=== PATIENT | female | born 1955 | race Hispanic/Latino ===

== ENCOUNTER → 2022-09-09 | Outpatient (CLI) | payer OTHER | END | disposition home or self-care (01) | LOC: RAH 14:07 | PROVIDERS: ATTEND Family Medicine | DX: R10.9 Unspecified abdominal pain (principal); R10.2 Pelvic and perineal pain; Z90.710 Acquired absence of both cervix and uterus | CPT/HCPCS: 76770; 76856 ==

== ENCOUNTER 2024-10-25 11:58 | Emergency (ER) | payer OTHER ==
[~2024-10-25] VITALS: Ht 144.8 cm; Wt 61.2 kg
[~2024-10-25 11:58] MED LIST: BENZ-39 PO; ELVI1TAB3 PO; ERGO500093 PO; FOLI1 PO; LIDO1ADH71 TP
--- NOTE | 2024-10-25 12:32 | ERN ---
ED Note History of Present Illness Stated Complaint: NAUSEA, DIZZY Chief Complaint: Lower Extremity Pain/Injury Time Seen by MD: 12:02 Dictation: PATIENT IS A 69-YEAR-OLD FEMALE HERE WITH MULTIPLE COMPLAINTS. FIRST COMPLAINT IS SHE HAS BILATERAL PAIN FROM HER BILATERAL LEGS DOWN TO HER FEET AND CRAMPING ONSET SHE HAS HAD FOR QUITE A WHILE. SHE ALSO STATES SHE HAS PAIN IN BILATERAL THIGHS OCCASIONALLY. SHE ALSO STATES FROM TIME TO TIME SHE IS DIZZY. DOES NOT HAVE ANY HEADACHE, NIH IS 0. SHE HAS TAKEN NOTHING PRIOR TO ARRIVAL FOR THE PAIN. SHE STATES SHE SAW HER DOCTOR TWO DAYS AGO HE GAVE HER A SHOT FOR THE PAIN IN THE LEGS AND IT GOT BETTER BRIEFLY AND THEN IT CAME BACK. NO FEVER NO CHILLS. Allergies: Coded Allergies: Iodinated Contrast Media (Unverified Allergy, Unknown, 10/25/24) Penicillins (Unverified Allergy, Unknown, 06/09/24) Uncoded Allergies: EGGS (Allergy, Mild, 06/10/24) Home Meds Active Scripts Lidocaine (Lidocaine Pain Relief) 4 % Adh..patch, 1 EACH TP DAILY, #30 ADH.PATCH Prov:ANNALISA LEAL [employer] ATTORNEY 06/15/24 Benzonatate (Tessalon Perles) 100 Mg Cap, 1 CAP PO TID PRN for q6h for 10 Days, #30 CAP 0 Refills Prov:ANNALISA LEAL [employer] ATTORNEY 06/15/24 Reported Medications Folic Acid (Folvite) 1 Mg Tab, 1 TAB PO BID 06/10/24 Ergocalciferol (Vitamin D2) (Vitamin D2) 1,250 Mcg (90574 Unit) Capsule, 1 CAP PO QWEEK 06/10/24 Elviteg/Seda/Emtric/Tenofo Ala (Genvoya Tablet) 150 Mg-150 Mg-200 Mg-10 Mg Tablet, 1 TAB PO DAILY 06/10/24 Past Medical History Past Medical History: HIV Surgical History: Other Surgical History Other: BRAIN TUMOR History: Not Applicable RN Note Reviewed/Agreed w/PFSH: Yes Review of System Dictation CONSTITUTIONAL: NEGATIVE EXCEPT FOR HPI HEAD/FACE: NEGATIVE EXCEPT FOR HPI EENT: NEGATIVE EXCEPT FOR HPI RESPIRATORY: NEGATIVE EXCEPT FOR HPI GASTROINTESTINAL/ABDOMINAL: NEGATIVE EXCEPT FOR HPI GENITOURINARY: NEGATIVE EXCEPT FOR HPI MUSCULOSKELETAL: NEGATIVE EXCEPT FOR HPI BILATERAL LOWER EXTREMITY AND LEFT THIGH TENDERNESS WITH INTEGUMENTARY: NEGATIVE EXCEPT FOR HPI NEUROLOGICAL/PSYCH: NEGATIVE EXCEPT FOR HPI PALPATION DIZZY HEMATOLOGIC/LYMPHATIC: NEGATIVE EXCEPT FOR HPI ALL SYSTEMS NEGATIVE, EXCEPT NOTED ABOVE. 13 POINT REVIEW OF SYSTEMS ASSESSED AND ALL NEGATIVE EXCEPT FOR ABOVE. Initial Vital Sign VS Vital Signs Date Time Temp Pulse Resp B/P (MAP) Pulse Ox O2 Delivery O2 Flow Rate FiO2 10/25/24 12:13 100.9 84 16 137/56 Room Air 0 Physical Exam Dictation VITAL SIGNS REVIEWED GENERAL APPEARANCE: ALERT, ORIENTED X 3, NO ACUTE DISTRESS, WELL DEVELOPED, NO URISHED. ANXIOUS HEAD AND FACE: NON-TRAUMATIC. EYES: PERRL, PINK CONJUNCTIVAS, EYELID NO TRAUMA, ANTERIOR CHAMBER WITH ARCUS SE NILIS. EARS: PINNAS INTACT AND NO SIGNS OF TRAUMA OR ERYTHEMA EAR CANALS CLEAR AND NO DISCHARGE TM NO ERYTHEMA NOSE: NO DISCHARGE, NO BLEEDING. OROPHARYNX: MOUTH NORMAL, TONGUE PINK, PHARYNX CLEAR,NO ERYTHEMA, TONSILS NO EXUDATES, NO ABSCESSES NOTED, MUCOUS MEMBRANE MOIST NECK: SUPPLE, NON-TENDER, NO THYROMEGALY, NO MASSES, NO JVD, NO BRUITS BREAST:DEFERRED CHEST:NO TENDERNESS, NO CREPITUS, NO PARADOXICAL MOVEMENT, NO RETRACTIONS LUNGS:CLEAR, WELL-VENTILATED, SYMMETRIC, NO RALES, NO WHEEZING, NO RHONCHI, NO STRIDOR, GOOD BREATH SOUNDS BILATERALLY HEART: REGULAR RATE, REGULAR RHYTHM, NO MURMUR, NO GALLOPS VASCULAR: NO PERIPHERAL EDEMA, ABDOMEN: SOFT, POSITIVE BOWEL SOUNDS, NONDISTENDED, NO GUARDING, NONTENDER, NO REBOUND, NO MASSES NO HEPATOMEGALY, NO SPLENOMEGALY, NO AU'S SIGN, NO HERNIAS. RECTAL: DEFERRED GENITAL: DEFERRED NEUROLOGICAL: NORMAL SPEECH, MOTOR FUNCTION INTACT, SENSORY FUNCTION INTACT NIH IS 0 MUSCULOSKELETAL: NECK NONTENDER, FULL RANGE OF MOTION, BACK NONTENDER, FULL RANGE OF MOTION, EXTREMITIES: MILD TENDERNESS TO BILATERAL CALVES POSTERIORLY AND LEFT THIGH., FULL RANGE OF MOTION NEGATIVE HOMANS SIGN DISTAL NEUROVASCULAR CMS INTACT WITH NO ERYTHEMA SKIN: COLOR PINK, DRY, NO TURGOR, NO RASH, NO LACERATIONS, NO ABRASIONS, NO CONTUSIONS. LYMPHATIC: DEFERRED Results (Laboratory/Radiology) Laboratory/Radiology Laboratory Tests Test 10/25/24 14:20 White Blood Count 7.5 K/uL (4.8-10.8) Red Blood Count 3.71 MIL/uL (4.00-5.50) L Hemoglobin 10.7 g/dL (12.0-16.0) L Hematocrit 32.7 % (36-48) L Mean Corpuscular Volume 88.1 fL (79-99) Mean Corpuscular Hemoglobin 28.8 pg (27.0-33.0) Mean Corpuscular Hemoglobin Concent 32.7 g/dL (32.0-36.0) Red Cell Distribution Width 12.6 % (11.0-15.5) Platelet Count 292 K/uL (130-400) Mean Platelet Volume 8.9 fL (7.5-10.5) Immature Granulocyte % (Auto) 0.5 % (0-1) Neutrophils (%) (Auto) 61.8 % (40.0-77.0) Lymphocytes (%) (Auto) 26.4 % (21.0-51.0) Monocytes (%) (Auto) 10.6 % (3.0-13.0) Eosinophils (%) (Auto) 0.4 % (0.0-8.0) Basophils (%) (Auto) 0.3 % (0.0-5.0) Neutrophils # (Auto) 4.6 K/uL (1.8-7.7) Lymphocytes # (Auto) 2.0 K/uL (1.0-4.8) Monocytes # (Auto) 0.8 K/uL (0.1-1.0) Eosinophils # (Auto) 0.03 K/uL (0.00-0.70) Basophils # (Auto) 0.02 K/uL (0.00-0.20) Absolute Immature Granulocyte (auto 0.04 K/uL (0-1) Nucleated Red Blood Cells 0.0 % (0.0-0.19) Sodium Level 137 mmol/L (136-145) Potassium Level 3.1 mmol/L (3.5-5.1) L Chloride Level 103 mmol/L (101-111) Carbon Dioxide Level 27 mmol/L (21-32) Blood Urea Nitrogen 11 mg/dL (7-18) Creatinine 0.8 mg/dL (0.5-1.0) Glomerular Filtration Rate Calc 79 mL/min (>90) Random Glucose 97 mg/dL (70-105) Total Calcium 8.3 mg/dL (8.5-10.1) L BILATERAL LOWER EXTREMITY DOPPLERS NEGATIVE FOR DVT Labs Reviewed?: Yes EKG: (+) NSR EKG Comment: NORMAL SINUS RHYTHM/HEART RATE 71/AXIS NORMAL/NO ECTOPY/NO T-WAVE NOTE NO TROPONIN WAS DRAWN. ED Course ED Course Orders Procedure Category Date Status Time Us Venous Doppler US 10/25/24 Taken Bilateral 12:28 Cbc With Differential LAB 10/25/24 Complete 12:28 12 Lead Ekg Tracing- EKG 10/25/24 Complete Technical 12:28 0.9%Nacl 1000ml (Ns PHA 10/25/24 Complete 1000ml) 12:30 Magnesium LAB 10/25/24 In Process 12:28 Troponin I High LAB 10/25/24 In Process Sensitivity 12:28 Basic Metabolic Panel LAB 10/25/24 In Process 12:28 Ketorolac PHA 10/25/24 Complete Tromethamine 30mg/Ml 12:30 Potassium Bicarb/Cit PHA 10/25/24 Verified Ac 25meq (K-Lyte Ta 15:00 Current Medications Medications (Trade) Dose Ordered Sig/Felix Route PRN Reason Start Time Stop Time Status Last Admin Dose Admin Ketorolac Tromethamine (toRADol) 30 mg ONCE ONCE IVP 10/25/24 12:30 10/25/24 12:35 DC 10/25/24 13:42 Sodium Chloride 1,000 ml @ 0 mls/hr ONCE ONCE IV 10/25/24 12:30 10/25/24 12:34 DC 10/25/24 13:42 Vital Signs Date Time Temp Pulse Resp B/P (MAP) Pulse Ox O2 Delivery O2 Flow Rate FiO2 10/25/24 12:13 100.9 84 16 137/56 Room Air 0 1435/PATIENT WITH A HAVE POTASSIUM ADMITTED, SHE WILL BE DISCHARGED HOME WITH CALCIUM REPLACEMENTS TOLD TO SEE HER PRIMARY CARE DOCTOR FOR FOLLOW UP AND MANAGEMENT Medical Decision Making MDM MDM: DIFFERENTIAL DIAGNOSIS: DIZZINESS/VERTIGO/ACS/AMI/ELECTROLYTE IMBALANCE/DEHYDRATION/ARRHYTHMIA RATIONALE: TESTS CONSIDERED AND ORDERED SECONDARY TO SHARED DECISION MAKING INCLUDE: EKG/LABS PREVIOUS OUTSIDE RECORDS REVIEWED: OLD ER VISITS. RISK OF COMPLICATION AND/OR MORBIDITY OR MORTALITY OF PATIENT MANAGEMENT: NONE MEDICATIONS-PER MEDICATION RECONCILIATION NEED FOR HOSPITALIZATION: PATIENT DOES NOT MEET CRITERIA FOR HOSPITALIZATION. NO NEED FOR EMERGENCY MAJOR/MINOR SURGERY: NO THERE ARE NO SOCIAL CONCERNS WITH THIS PATIENT. PRESCRIPTION DRUG MANAGEMENT CALCIUM PRESCRIPTIONS WILL INCLUDE SYMPTOMATIC CARE PATIENT'S PRIOR EXTERNAL MEDICAL RECORDS FROM OTHER ER VISITS WERE REVIEWED BY ME INDICATED. PRIOR TESTING AND RESULTS FROM PREVIOUS VISITS WERE REVIEWED. PRIOR TESTS WERE TAKEN INTO ACCOUNT WITH MEDICAL DECISION MAKING AND RESOURCE UTILIZATION, INDEPENDENT HISTORIAN/HISTORIANS WERE USED TO OBTAIN COMPLETE MEDICAL HISTORY. I INDEPENDENTLY INTERPRETED THE TEST THAT WERE PERFORMED, RESULTS WERE REVIEWED BY ME AND CONSIDERED FINDINGS ON RADIOLOGY IF ORDERED. MEDICAL MANAGEMENT AND EXAMINATION INTERPRETATION DISCUSSIONS WERE HAD BY ME WITH OTHER QUALIFIED HEALTHCARE PROFESSIONALS INDICATED FOR THE PATIENT'S CARE. DX & DISP Disposition: Discharge Departure Impression: Primary Impression: Hypocalcemia Additional Impressions: Hypokalemia, Bilateral leg cramps Condition: Stable Scripts Calcium Carbonate (Calcium) 600 Mg Calcium (1500 Mg) Tablet 1 TAB PO BID for 30 Days, #60 TAB 0 Refills Prov: BALJIT SAAB STATE'S ATTORNEY 10/25/24 Additional Instructions: FOLLOW-UP WITH PRIMARY CARE PROVIDER IN 1 TO 2 DAYS. TAKE MEDICATIONS DIRECTED HERE IN THE EMERGENCY ROOM. OKAY TO CONTINUE HOME MEDICATIONS UNLESS OTHERWISE DISCUSSED DURING YOUR VISIT IN THE EMERGENCY ROOM TODAY. RETURN TO YOUR NEAREST EMERGENCY ROOM IF SYMPTOMS WORSEN OR IF THERE IS NO IMPROVEMENT. CALL 911 IF YOU NEED IMMEDIATE ASSISTANCE. TAKE TYLENOL OR MOTRIN [id number] NEEDED AND IF NO CONTRAINDICATIONS ARE PRESENT. INCREASE ORAL HYDRATION. A WOUND CULTURE OR URINE CULTURE WAS ORDERED HERE IN THE EMERGENCY ROOM DEPARTMENT PLEASE FOLLOW-UP WITH PRIMARY CARE PROVIDER AND ADVISE THEM TO GET REPEAT PORTS FROM OUR FACILITY. IF YOU HAD ANY LIZZETTE WRAP/SPLINTS THAT WERE APPLIED HERE, PLEASE DO NOT REMOVE THEM UNTIL YOU SEE YOUR PRIMARY CARE OR SPECIALTY. TAKE CALCIUM DIRECTED DAILY. INCREASE YOUR WATER INTAKE., FOLLOW UP WITH YOUR PRIMARY CARE DOCTOR IN THE NEXT 1-2 DAYS FOR MANAGEMENT. Referrals: PHUC CHEEMA MD (PCP) Time of Disposition: 14:41 I have reviewed the case, and I agree with, Diagnosis and Plan BALJIT SAAB NP Oct 25, 2024 12:32
[2024-10-25] MEDS: ketOROlac 30MG VIAL (30MG/ML) IVP ONE (13:42)
[2024-10-25] MEDS: 0.9%NACL 1000ML 1,000 ML IV ONE (13:42)
--- NOTE | 2024-10-25 13:49 | EKG ---
[facility] Test Date: 2024-10-25 Test Time: 13:31:30 Pat Name: RYAN MOTTA Department: [facility] Patient ID: [id number] Room: Gender: F [facility] Internship: [id number] : 1955 Requested By: BALJIT SAAB Order Number: [id number] Reading MD: Gomez Marques Measurements Intervals [place] Rate: 71 P: 26 FL: 141 QRS: -17 QRSD: 90 T: 48 QT: 409 QTc: 445 Interpretive Statements Sinus rhythm Compared to ECG 06/09/2024 12:24:34 Atrial premature complex(es) no longer present Electronically Signed On 10-25-2024 22:17:24 CDT by Gomez Marques Please click the below link to view image of tracing.
[2024-10-25 14:27] LABS: BASOPHILS # (AUTO) 0.02 K/uL (0.00-0.20); BASOPHILS % (AUTO) 0.3 % (0.0-5.0); EOSINOPHILS # (AUTO) 0.03 K/uL (0.00-0.70); EOSINOPHILS % (AUTO) 0.4 % (0.0-8.0); HEMATOCRIT 32.7 % (36-48); IMMATURE GRANULOCYTE ABSOLUTE 0.04 K/uL (0-1); LYMPHOCYTES % (AUTO) 26.4 % (21.0-51.0); MEAN CORPUSCULAR HEMOGLOBIN 28.8 pg (27.0-33.0); MEAN CORPUSCULAR HGB CONC 32.7 g/dL (32.0-36.0); MEAN CORPUSCULAR VOLUME 88.1 fL (79-99); MONOCYTES # (AUTO) 0.8 K/uL (0.1-1.0); MONOCYTES % (AUTO) 10.6 % (3.0-13.0); NEUTROPHILS # (AUTO) 4.6 K/uL (1.8-7.7); NEUTROPHILS % (AUTO) 61.8 % (40.0-77.0); PLATELET COUNT (AUTO) 292 K/uL (130-400); RED BLOOD CELL COUNT(AUTO) 3.71 MIL/uL (4.00-5.50); RED CELL DISTRIBUTION WIDTH 12.6 % (11.0-15.5); WHITE BLOOD COUNT (AUTO) 7.5 K/uL (4.8-10.8)
[2024-10-25 14:33] LABS: CREATININE 0.8 mg/dL (0.5-1.0); POTASSIUM 3.1 mmol/L (3.5-5.1)
[2024-10-25] MEDS ORDERED: CALC-1125 PO (14:42)
[2024-10-25 14:43] LABS: MAGNESIUM 1.8 mg/dL (1.80-2.40)
--- NOTE | 2024-10-25 15:02 | HMCIMG ---
US VENOUS DOPPLER BILATERAL REASON: BILATERAL CALF PAIN SWELLING. COMPARISON: None Technique: Bilateral venous doppler ultrasound was performed with spectral analysis and color flow imaging technique. FINDINGS: There is a normal appearance of the common femoral, deep femoral, the profunda femoris and popliteal veins. Proximal calf veins appear normal as well. There is normal response to compression and augmentation. There is no evidence of deep venous thrombosis. IMPRESSION: Normal bilateral lower extremity venous Doppler ultrasound.
[2024-10-25] MEDS: PoTASSium BIcarbonate/CIT AC 25 MEQ TABLET.EFF PO ONE (15:09)
[2024-10-25 15:15] VITALS: BP 127/68; PULSE 79; RESP 19; TEMP 99.5; O2SAT 99
== END 2024-10-25 15:46 | disposition home or self-care (01) ==
LOC: EDH 11:58
DX: E83.51 Hypocalcemia (principal); E87.6 Hypokalemia; R25.2 Cramp and spasm; M79.605 Pain in left leg; M79.604 Pain in right leg; Z88.0 Allergy status to penicillin; Z91.041 Radiographic dye allergy status
CPT/HCPCS: 99284; 93970; 96374; 96361; 83735; 84484; 80048; 85025; 36415; 93005; J1885; J7030

== ENCOUNTER 2025-01-25 14:00 | Inpatient (IN) | payer OTHER ==
[~2025-01-25] VITALS: Ht 154.9 cm; Wt 72.6 kg
[2025-01-25 13:23] LABS: IMMATURE GRANULOCYTE ABSOLUTE 0.01 K/uL (0-1); NUCLEATED RED BLOOD CELLS 0.0 % (0.0-0.19); PLATELET COUNT (AUTO) 364 K/uL (130-400); RED BLOOD CELL COUNT(AUTO) 4.30 MIL/uL (4.00-5.50); RED CELL DISTRIBUTION WIDTH 13.8 % (11.0-15.5); WHITE BLOOD COUNT (AUTO) 4.9 K/uL (4.8-10.8)
[2025-01-25 13:28] LABS: INR 1.08 (0.85-1.15)
[2025-01-25 13:31] LABS: ASPARTATE AMINOTRANSFERASE 16.0 U/L (10-37); CREATININE 0.9 mg/dL (0.5-1.0); GLOMERULAR FILTR. RATE CALC 68.0 mL/min (>90); GLUCOSE,RANDOM 104.0 mg/dL (70-105); SODIUM SERUM 140.0 mmol/L (136-145); TOTAL PROTEIN, SERUM 7.6 g/dL (6.0-8.3); UREA NITROGEN, BLOOD 17.0 mg/dL (7-18)
[~2025-01-25 14:00] MED LIST changes: -BENZ-39 PO; -FOLI1 PO; -LIDO1ADH71 TP
[2025-01-25 14:04] VITALS: BP 185/89; PULSE 61; RESP 18; TEMP 97.3
[2025-01-25] MEDS ORDERED: OMEP40CA21 PO (14:09)
[2025-01-27] VITALS (32 sets, daily range): BP systolic 136–162; BP diastolic 61–92; PULSE 67–98; RESP 13–21; TEMP 97.1–97.9
[2025-01-27] MEDS: CLINDAMYCIN IVPB 600MG/50ML 50 ML IV ONE (08:08)
[2025-01-27] MEDS: LACTATED RINGERS 1000ML 1,000 ML IV ONE (08:46)
[2025-01-27] MEDS ORDERED: LIDOCAINE HCL MPF 1% 5ML VIAL ONE (09:05)
[2025-01-27] MEDS ORDERED: MIDAZOLAM HCL 1 MG/ML 2ML VIAL ONE (09:07)
[2025-01-27] MEDS ORDERED: NEOSTIGMINE METHYLSULFATE 1MG/ML IV ONE (12:48)
[2025-01-27] MEDS ORDERED: GLYCOPYRROLATE 0.2 MG/ML 5 ML VIAL ONE (12:48)
[2025-01-27] MEDS ORDERED: HYDROcod/acetaMINOPHEN 7.5/325 MG 15 ML UDCUP PO PRN (13:30)
[2025-01-27] MEDS ORDERED: PROCHLORPERAZINE 10MG/2ML INJ IV PRN (13:30)
[2025-01-27] MEDS: LACTATED RINGERS 1000ML 1,000 ML IV SCH (13:30)
--- NOTE | 2025-01-27 13:42 | PN ---
GENERAL SURGERY PROGRESS NOTE Date/Time Patient Seen: [ 01/27/2025 at 1:40 p.m.] Problem List: [ ] Interval History: [ Postop day 0. Pain tolerable with the p.r.n. medication.] Current Medications Medications (Trade) Dose Ordered Sig/Felix Route Start Time Stop Time Status Last Admin Dose Admin Enoxaparin Sodium (Lovenox) 40 mg DAILY15 SQ 01/27/25 15:00 02/26/25 14:59 UNV Famotidine (Pepcid 20mg Vial) 20 mg BID IV 01/27/25 21:00 02/26/25 20:59 UNV Lactated Ringer's 1,000 ml @ 150 mls/hr Q6H40M IV 01/27/25 13:30 02/26/25 13:29 UNV Physical Examination: GENERAL: [No acute distress.] ABD: [Incisions clean, dry and intact, Dermabond in place Vital Signs (last 8hr) Date Time Temp Pulse Resp B/P (MAP) Pulse Ox O2 Delivery O2 Flow Rate FiO2 01/27/25 08:00 97.3 67 18 153/76 99 Room Air Laboratory: [ ] Diagnostics / Radiology: [Copy/Paste Echos/Imaging Report here] Impression and Plan: [Plan is for discharge home in the next day or two as long as patient tolerating p.o., ambulatory and pain under control. Discussed with the patient and family. They understand and agree. ] JANAE ROLDAN Jan 27, 2025 13:42
--- NOTE | 2025-01-27 13:56 | OP ---
Operative Note: DATE OF PROCEDURE: 01/27/25 SURGEON: LYNN ROLDAN MD MOHS SURGEON: Remigio Roldan MD PA-C ANESTHESIA: General and Local ANESTHESIOLOGIST/EMAIL CAMPAIGN SPECIALIST: [facility] [place] PREOPERATIVE DIAGNOSIS: Gastric mass POSTOPERATIVE DIAGNOSIS: As above SYNOPSIS: Gastric mass removed and primary closure was performed without complication PROCEDURE: -Robotic assisted partial gastrectomy with primary closure, removal of gastric mass -EGD -Omental patch placement ESTIMATED BLOOD LOSS: min, <50cc INDICATIONS: As above DESCRIPTION OF PROCEDURE: After standard precautions and preparations were undertaken a Veress needle and optical trocar were used to enter the abdominal cavity. All other instruments were placed under direct vision. The robotic system was docked in the standard fashion. My partner passed the EGD scope down into the stomach to verify the location of the tumor which appeared on the posterior wall of the mid gastric body. We used a bipolar dissecting device to separate greater curve blood supply attachments and flip the stomach to expose the posterior wall of the stomach out of the lesser sac. The tumor was a created round submucosal mass from the endoscopic view but from the laparoscopic view the mass was large and fungating with thin fibrinous attachments to nearby structures including the pancreas and retroperitoneum. T hese attachments were taken to allow for more mobilization of the posterior wall of the stomach. We placed several silk sutures around the circumference of the mass in order to handle the sutures and not the tissue directly. Monopolar cautery was used to enter into the stomach under the direct vision of the endoscope. We then utilized the bipolar dissecting device to circumferentially resect the mass on block. We had sutured the gastric defect in multiple layers including placement of an omental patch. A leak test was performed which showed no signs of leak or problem and there was no sign of stenosis of the gastric lumen either. The mass was placed in an Endo-Catch bag and a small midline vertical incision was used to extract the mass. The fascia was closed. At the end of the case all instrument counts were verified as correct including needles and sponges. LYNN ROLDAN MD Jan 27, 2025 13:56
[2025-01-27] MEDS: ENOXAPARIN SODIUM 30 MG/0.3 ML SQ SCH (15:00)
--- NOTE | 2025-01-27 15:19 | NUR ---
DR. ROLDAN WAS NOTIFIED ABOUT PT"s ALLERGY TO CODEINE , PER DR. ROLDAN IT WAS OK TO CONTINUE WITH LORTAB ORDER. PT. SATES HER REACTION TO CODEINE WAS SMALL RASH AND SOME ANXIETY RUI. PHARMACY STAFF NOTIFIED. Addendum: 01/27/25 at 1524 by RAHEL LINDSAY RN RN Amended: Links added.
--- NOTE | 2025-01-27 17:15 | NUR ---
PT ARRIVED TO ROOM 329. PT AOX4 ON O2 3L. PT DENIES ANY CURRENT PAIN. 6 ABD INCISIONS CLEAN AND DRY WITH DERMABOND. BED POSITION TO LOWEST POSITION POSITION CALL LIGHT IN REACH. SON AT BEDSIDE
[2025-01-27] MEDS: FAMOTIDINE 20MG VIAL IV SCH (20:40)
[2025-01-28] VITALS: BP 135/68; PULSE 66; RESP 20; TEMP 98.2
[2025-01-28 03:51] VITALS: BP 124/75; PULSE 67; RESP 16; TEMP 97.5
[2025-01-28 08:00] VITALS: BP 120/57; PULSE 66; RESP 16; TEMP 98; O2SAT 96
--- NOTE | 2025-01-28 10:22 | NUR ---
Attempted PT eval, patient is currently ambulating I and has already showered and dressed self unassisted. No PT needs at this time, DC home.
[2025-01-28 12:00] VITALS: BP 138/61; PULSE 62; RESP 16; TEMP 98.2
--- NOTE | 2025-01-28 14:33 | DS ---
Discharge Summary Hospital Course 69 yo female patient with history of HIV, Chronic Hep C, Hiatal hernia, GERD,and Gastric mass who underwent a Robotic assisted partial gastrectomy with primary closure, removal of gastric mass, EGD, and omental patch placement. Patient's VSS. She has tolerated clear fluids without any n/v. She has ambulated without difficulties and is passing flatus. DX GAstric Mass HIV Chronic Hepatitis C GERD Hiatal hernia Plan Discharge home. Clear liquid diet for the next 24 days Encourage ambulation Encourage I/S exercises NO heavy lifting, pushing or pulling any object greater than 10 lbs No bending or squatting No driving for the first 2 weeks Pain meds have been sent to patient's pharmacy Patient has f/u at [facility] 02/03/25 at 2:30pm DANIELA DENISE NP Jan 28, 2025 14:33
[2025-01-28 16:00] VITALS: BP 134/63; PULSE 63; RESP 17; TEMP 98.5
[2025-01-28] MEDS ORDERED: PHARMACY COMMUNICATION 1 EACH EACH MISC SCH (18:30)
--- NOTE | 2025-01-28 18:52 | NUR ---
PATIENT DISCHARGED HOME ID BAND AND IV REMOVED. DISCHARGE INSTRUCTIONS EXPLAINED AND GIVEN TO PATIENT. PATIENT VERBALIZED UNDERSTANDING. BELONGINGS PACKED AND TAKEN BY PATIENT. WHEELED DOWN TO PRIVATE CAR.
== END 2025-01-28 18:52 | disposition home or self-care (01) | DRG 327 ==
LOC: EDSTATUS 14:00 → DAHIP 01-27 07:40 → UNDOADMIN 01-27 07:40 → DAHIP 01-27 17:15 → 3AH 01-27 17:15
PROVIDERS: ADMIT Surgery; ATTEND Surgery
PROC: 0DJ08ZZ Inspection of Upper Intestinal Tract, Via Natural or Artificial Opening Endoscopic (ICD-10-PCS; 2025-01-27)
PROC: 8E0W4CZ Robotic Assisted Procedure of Trunk Region, Percutaneous Endoscopic Approach (ICD-10-PCS; 2025-01-27)
PROC: 0DXU4ZW Transfer Omentum to Abdominal Region, Percutaneous Endoscopic Approach (ICD-10-PCS; 2025-01-27)
PROC: 0DB64ZZ Excision of Stomach, Percutaneous Endoscopic Approach (ICD-10-PCS; principal; 2025-01-27 11:08)
DX: K31.9 Disease of stomach and duodenum, unspecified (principal); E44.0 Moderate protein-calorie malnutrition; B18.2 Chronic viral hepatitis C; K21.9 Gastro-esophageal reflux disease without esophagitis; K44.9 Diaphragmatic hernia without obstruction or gangrene; Z21 Asymptomatic human immunodeficiency virus [HIV] infection status; Z68.30 Body mass index [BMI] 30.0-30.9, adult
CPT/HCPCS: 36415; 43235; 80053; 85025; 85610; 85730; 86850; 86900; 86901; G0378; J1100; J1171; J1885; J2250; J2405; J2704; J2710; J3010; J3490; J7030; J7120; A4215; A4216; A4221; A4222; A4223; A4600; A4649; A4663; A6260; J0665

== ENCOUNTER 2025-01-30 20:07 | Emergency (ER) | payer OTHER ==
[~2025-01-30] VITALS: Ht 149.9 cm; Wt 58.5 kg
[~2025-01-30 20:07] MED LIST changes: +OMEP40CA21 PO
--- NOTE | 2025-01-30 20:12 | NUR ---
REPORT TO Nathen CASTRO RN
--- NOTE | 2025-01-30 20:14 | ERN ---
ED Note History of Present Illness Stated Complaint: N/DIARRHEA, CHILLS Chief Complaint: Post-Op Problem Time Seen by MD: 20:08 Dictation: PATIENT IS A 69-YEAR-OLD FEMALE HERE WITH HER SON WITH COMPLAINTS OF HAVING ABDOMINAL PAIN WITH NAUSEA ONSET 2-3 DAYS PRIOR TO ARRIVAL. SHE STATES SHE WAS HERE ON 01/27 FOR A RESECTION OF A GASTRIC MASS BY DR. LYNN ROLDAN. SHE WAS DISCHARGED THAT SAME DAY. SHE STATES SHE SHE HAS HAD THE SAME PAIN SINCE. IS HAVING CHILLS HOWEVER SHE IS AFEBRILE IN TRIAGE. SHE HAS LAPAROSCOPIC SITES TO THE ABDOMEN WELL APPROXIMATED NO INFLAMMATION NO TENDERNESS NO DRAINAGE Allergies: Coded Allergies: Iodinated Contrast Media (Unverified Allergy, Unknown, 10/25/24) Penicillins (Unverified Allergy, Unknown, 06/09/24) codeine (Unverified Allergy, Unknown, 01/25/25) milk (Unverified Allergy, Unknown, 01/25/25) Uncoded Allergies: EGGS (Allergy, Mild, 06/10/24) Home Meds Reported Medications Omeprazole (Omeprazole) 40 Mg Capsule.dr, 40 MG PO HS, CAP 01/25/25 Ergocalciferol (Vitamin D2) (Vitamin D2) 1,250 Mcg (84151 Unit) Capsule, 1 CAP PO QWEEK 06/10/24 Elviteg/Seda/Emtric/Tenofo Ala (Genvoya Tablet) 150 Mg-150 Mg-200 Mg-10 Mg Tablet, 1 TAB PO DAILY 06/10/24 Discontinued Reported Medications Folic Acid (Folvite) 1 Mg Tab, 1 TAB PO BID 06/10/24 Discontinued Scripts Calcium Carbonate (Calcium) 600 Mg Calcium (1500 Mg) Tablet, 1 TAB PO BID for 30 Days, #60 TAB 0 Refills Prov:BALJIT SAAB INSPECTOR HEATING AND REFRIGERATION 10/25/24 Lidocaine (Lidocaine Pain Relief) 4 % Adh..patch, 1 EACH TP DAILY, #30 ADH.PATCH Prov:ANNALISA LEAL INSPECTOR HEATING AND REFRIGERATION 06/15/24 Benzonatate (Tessalon Perles) 100 Mg Cap, 1 CAP PO TID PRN for q6h for 10 Days, #30 CAP 0 Refills Prov:ANNALISA LEAL INSPECTOR HEATING AND REFRIGERATION 06/15/24 Past Medical History Past Medical History: HIV Surgical History: Other Surgical History Other: BRAIN TUMOR History: Not Applicable RN Note Reviewed/Agreed w/PFSH: Yes Review of System Dictation CONSTITUTIONAL: NEGATIVE EXCEPT FOR HPI HEAD/FACE: NEGATIVE EXCEPT FOR HPI EENT: NEGATIVE EXCEPT FOR HPI RESPIRATORY: NEGATIVE EXCEPT FOR HPI GASTROINTESTINAL/ABDOMINAL: NEGATIVE EXCEPT FOR HPI ABDOMINAL PAIN WITH NAUSEA GENITOURINARY: NEGATIVE EXCEPT FOR HPI MUSCULOSKELETAL: NEGATIVE EXCEPT FOR HPI INTEGUMENTARY: NEGATIVE EXCEPT FOR HPI NEUROLOGICAL/PSYCH: NEGATIVE EXCEPT FOR HPI HEMATOLOGIC/LYMPHATIC: NEGATIVE EXCEPT FOR HPI ALL SYSTEMS NEGATIVE, EXCEPT NOTED ABOVE. 13 POINT REVIEW OF SYSTEMS ASSESSED AND ALL NEGATIVE EXCEPT FOR ABOVE. Initial Vital Sign VS Vital Signs Date Time Temp Pulse Resp B/P (MAP) Pulse Ox O2 Delivery O2 Flow Rate FiO2 01/30/25 20:08 97.9 68 18 167/60 97 Room Air 01/30/25 20:30 0 21 Physical Exam Dictation VITAL SIGNS REVIEWED GENERAL APPEARANCE: ALERT, ORIENTED X 3, MILD ACUTE DISTRESS, WELL DEVELOPED, NOURISHED. HEAD AND FACE: NON-TRAUMATIC. EYES: PERRL, PINK CONJUNCTIVAS, EYELID NO TRAUMA, ANTERIOR CHAMBER WITH ARCUS SENILIS. EARS: PINNAS INTACT AND NO SIGNS OF TRAUMA OR ERYTHEMA EAR CANALS CLEAR AND NO DISCHARGE TM NO ERYTHEMA NOSE: NO DISCHARGE, NO BLEEDING. OROPHARYNX: MOUTH NORMAL, TONGUE PINK, PHARYNX CLEAR,NO ERYTHEMA, TONSILS NO EXUDATES, NO ABSCESSES NOTED, MUCOUS MEMBRANE MOIST NECK: SUPPLE, NON-TENDER, NO THYROMEGALY, NO MASSES, NO JVD, NO BRUITS BREAST:DEFERRED CHEST:NO TENDERNESS, NO CREPITUS, NO PARADOXICAL MOVEMENT, NO RETRACTIONS LUNGS:CLEAR, WELL-VENTILATED, SYMMETRIC, NO RALES, NO WHEEZING, NO RHONCHI, NO STRIDOR, GOOD BREATH SOUNDS BILATERALLY HEART: REGULAR RATE, REGULAR RHYTHM, NO MURMUR, NO GALLOPS VASCULAR: NO PERIPHERAL EDEMA, ABDOMEN: SOFT, POSITIVE BOWEL SOUNDS, NONDISTENDED, NO GUARDING, MILD TENDERNESS TO THE MID GASTRIC AREA. FOCAL TENDERNESS NO REBOUND. THREE LAPAROSCOPIC SITES GRANULATING WELL NO ERYTHEMA NO SWELLING NO DRAINAGE RECTAL: DEFERRED GENITAL: DEFERRED NEUROLOGICAL: NORMAL SPEECH, MOTOR FUNCTION INTACT, SENSORY FUNCTION INTACT MUSCULOSKELETAL: NECK NONTENDER, FULL RANGE OF MOTION, BACK NONTENDER, FULL RANGE OF MOTION, EXTREMITIES: NONTENDER, FULL RANGE OF MOTION SKIN: COLOR PINK, DRY, NO TURGOR, NO RASH, NO LACERATIONS, NO ABRASIONS, NO CONTUSIONS. LYMPHATIC: DEFERRED Results (Laboratory/Radiology) Laboratory/Radiology Laboratory Tests Test 01/30/25 20:28 01/30/25 21:55 White Blood Count 6.0 K/uL (4.8-10.8) Red Blood Count 4.30 MIL/uL (4.00-5.50) Hemoglobin 11.8 g/dL (12.0-16.0) L Hematocrit 36.7 % (36-48) Mean Corpuscular Volume 85.3 fL (79-99) Mean Corpuscular Hemoglobin 27.4 pg (27.0-33.0) Mean Corpuscular Hemoglobin Concent 32.2 g/dL (32.0-36.0) Red Cell Distribution Width 13.8 % (11.0-15.5) Platelet Count 324 K/uL (130-400) Mean Platelet Volume 8.8 fL (7.5-10.5) Immature Granulocyte % (Auto) 0.3 % (0-1) Neutrophils (%) (Auto) 61.3 % (40.0-77.0) Lymphocytes (%) (Auto) 29.0 % (21.0-51.0) Monocytes (%) (Auto) 8.4 % (3.0-13.0) Eosinophils (%) (Auto) 0.7 % (0.0-8.0) Basophils (%) (Auto) 0.3 % (0.0-5.0) Neutrophils # (Auto) 3.7 K/uL (1.8-7.7) Lymphocytes # (Auto) 1.7 K/uL (1.0-4.8) Monocytes # (Auto) 0.5 K/uL (0.1-1.0) Eosinophils # (Auto) 0.04 K/uL (0.00-0.70) Basophils # (Auto) 0.02 K/uL (0.00-0.20) Absolute Immature Granulocyte (auto 0.02 K/uL (0-1) Nucleated Red Blood Cells 0.0 % (0.0-0.19) Sodium Level 134 mmol/L (136-145) L Potassium Level 4.0 mmol/L (3.5-5.1) Chloride Level 99 mmol/L (101-111) L Carbon Dioxide Level 26 mmol/L (21-32) Blood Urea Nitrogen 9 mg/dL (7-18) Creatinine 1.0 mg/dL (0.5-1.0) Glomerular Filtration Rate Calc 60 mL/min (>90) Random Glucose 105 mg/dL (70-105) Total Calcium 8.8 mg/dL (8.5-10.1) Lipase 38 U/L (16-77) Urine Color COLORLESS (YELLOW) Urine Appearance CLEAR (CLEAR) Urine pH 7.0 (5.0-8.0) Urine Specific [place] 1.005 (1.001-1.031) Urine Protein NEGATIVE mg/dL (NEGATIVE) Urine Glucose (UA) NEGATIVE mg/dL (NEGATIVE) Urine Ketones 10 mg/dL (NEGATIVE) H Urine Occult Blood NEGATIVE (NEGATIVE) Urine Nitrate NEGATIVE (NEGATIVE) Urine Bilirubin NEGATIVE mg/dL (NEGATIVE) Urine Urobilinogen 0.2 mg/dL (0.2-1.0) Urine Leukocyte Esterase NEGATIVE Narda/uL Urine RBC 2-5 /HPF (0-1) H Urine WBC 0-1 /HPF (0-1) Urine Bacteria None /HPF (None Seen) Labs Reviewed?: Yes ED Course ED Course Orders Procedure Category Date Status Time Cbc With Differential LAB 01/30/25 Complete 20:11 Urinalysis Profile LAB 01/30/25 Complete 20:11 0.9%Nacl 1000ml (Ns PHA 01/30/25 Complete 1000ml) 20:30 Morphine 2mg Syg PHA 01/30/25 Complete (Morphine 2mg Syg) 20:30 Ondansetron 4mg Inj PHA 01/30/25 Complete (Zofran 4mg Inj) 20:30 Ct Abdomen/Pelvis W/O CT 01/30/25 Resulted Contrast 20:11 Lipase LAB 01/30/25 Complete 20:11 Basic Metabolic Panel LAB 01/30/25 Complete 20:11 Clonidine Hcl 0.1 Mg PHA 01/30/25 Complete Tablet (Catapres 0. 22:00 Current Medications Medications (Trade) Dose Ordered Sig/Felix Route PRN Reason Start Time Stop Time Status Last Admin Dose Admin Clonidine HCl (CATApres 0.1 mg TAB) 0.1 mg ONCE ONCE PO 01/30/25 22:00 01/30/25 22:01 DC 01/30/25 22:05 Morphine Sulfate (morPHINE 2MG SYG) 2 mg ONCE ONCE IVP 01/30/25 20:30 01/30/25 20:31 DC 01/30/25 20:28 Ondansetron HCl (zoFRAN 4MG INJ) 4 mg ONCE ONCE IVP 01/30/25 20:30 01/30/25 20:31 DC 01/30/25 20:28 Sodium Chloride 1,000 ml @ 0 mls/hr ONCE ONCE IV 01/30/25 20:30 01/30/25 20:31 DC 01/30/25 20:28 Vital Signs Date Time Temp Pulse Resp B/P (MAP) Pulse Ox O2 Delivery O2 Flow Rate FiO2 01/30/25 22:31 97.7 61 19 185/67 99 Room Air* 0 21 01/30/25 22:05 62 183/60 01/30/25 21:40 97.7 62 18 183/60 97 Room Air* 0 21 01/30/25 20:30 97.9 65 17 173/73 98 Room Air* 0 21 01/30/25 20:08 97.9 68 18 167/60 97 Room Air 2238/SPOKE WITH DR. ROLDAN AND LABS AND CT REPORT. HE SAID THAT THIS IS NORMAL SEQUELAE ON THE FINDINGS FROM THE SURGERY. IF SHE IS OUT OF PAIN SEND HER HOME AND HAVE HIM FOLLOW UP IN HIS OFFICE TOMORROW OR KEEP YOUR APPOINTMENT FOR FRIDAY. Medical Decision Making MDM MDM: DIFFERENTIAL DIAGNOSIS: SURGICAL ABSCESS/WOUND INFECTION/ELECTROLYTE IMBALANCE/DEHYDRATION/HERNIA RATIONALE: TESTS CONSIDERED AND ORDERED SECONDARY TO SHARED DECISION MAKING INCLUDE: CT/LABS PREVIOUS OUTSIDE RECORDS REVIEWED: OLD ER VISITS. RISK OF COMPLICATION AND/OR MORBIDITY OR MORTALITY OF PATIENT MANAGEMENT: NONE MEDICATIONS-PER MEDICATION RECONCILIATION NEED FOR HOSPITALIZATION: PATIENT DOES NOT MEET CRITERIA FOR HOSPITALIZATION. NEED FOR EMERGENCY MAJOR/MINOR SURGERY: NO THERE ARE NO SOCIAL CONCERNS WITH THIS PATIENT. PRESCRIPTION DRUG MANAGEMENT ENALAPRIL PRESCRIPTIONS WILL INCLUDE SYMPTOMATIC CARE PATIENT'S PRIOR EXTERNAL MEDICAL RECORDS FROM OTHER ER VISITS WERE REVIEWED BY ME INDICATED. PRIOR TESTING AND RESULTS FROM PREVIOUS VISITS WERE REVIEWED. PRIOR TESTS WERE TAKEN INTO ACCOUNT WITH MEDICAL DECISION MAKING AND RESOURCE UTILIZATION, INDEPENDENT HISTORIAN/HISTORIANS WERE USED TO OBTAIN COMPLETE MEDICAL HISTORY. I INDEPENDENTLY INTERPRETED THE TEST THAT WERE PERFORMED, RESULTS WERE REVIEWED BY ME AND CONSIDERED FINDINGS ON RADIOLOGY IF ORDERED. MEDICAL MANAGEMENT AND EXAMINATION INTERPRETATION DISCUSSIONS WERE HAD BY ME WITH OTHER QUALIFIED HEALTHCARE PROFESSIONALS INDICATED FOR THE PATIENT'S CARE. DX & DISP Disposition: Discharge Departure Impression: Primary Impression: Surgical site reaction Additional Impressions: Hyponatremia, Mild dehydration, Uncontrolled hypertension Condition: Stable Scripts Enalapril Maleate (Enalapril Maleate) 10 Mg Tablet 1 TAB PO DAILY for 30 Days, #30 TAB 0 Refills Prov: BALJIT SAAB NP 01/30/25 Additional Instructions: FOLLOW-UP WITH PRIMARY CARE PROVIDER IN 1 TO 2 DAYS. TAKE MEDICATIONS DIRECTED HERE IN THE EMERGENCY ROOM. OKAY TO CONTINUE HOME MEDICATIONS UNLESS OTHERWISE DISCUSSED DURING YOUR VISIT IN THE EMERGENCY ROOM TODAY. RETURN TO YOUR NEAREST EMERGENCY ROOM IF SYMPTOMS WORSEN OR IF THERE IS NO IMPROVEMENT. CALL 911 IF YOU NEED IMMEDIATE ASSISTANCE. TAKE TYLENOL OR MOTRIN [id number] NEEDED AND IF NO CONTRAINDICATIONS ARE PRESENT. INCREASE ORAL HYDRATION. A WOUND CULTURE OR URINE CULTURE WAS ORDERED HERE IN THE EMERGENCY ROOM DEPARTMENT PLEASE FOLLOW-UP WITH PRIMARY CARE PROVIDER AND ADVISE THEM TO GET REPEAT PORTS FROM OUR FACILITY. IF YOU HAD ANY LIZZETTE WRAP/SPLINTS THAT WERE APPLIED HERE, PLEASE DO NOT REMOVE THEM UNTIL YOU SEE YOUR PRIMARY CARE OR SPECIALTY. FOLLOW UP WITH DR. LYNN ROLDAN IN HIS OFFICE TOMORROW, CALL FOR AN APPOINTMENT OR SEE HIM AT YOUR APPOINTMENT ON FRIDAY. TAKE BLOOD PRESSURE MEDICATIONS DIRECTED DAILY WITH FOOD. FOLLOW UP WITH THE YOUR PRIMARY CARE DOCTOR FOR YOUR BLOOD PRESSURE MANAGEMENT. INCREASE YOUR WATER INTAKE. Referrals: ANNE MCQUEEN MD (PCP) Time of Disposition: 22:55 I have reviewed the case, and I agree with, Diagnosis and Plan BALJIT SAAB NP Jan 30, 2025 20:14
[2025-01-30] MEDS: 0.9%NACL 1000ML 1,000 ML IV ONE (20:28)
[2025-01-30 20:41] LABS: IMMATURE GRANULOCYTE ABSOLUTE 0.02 K/uL (0-1); NUCLEATED RED BLOOD CELLS 0.0 % (0.0-0.19); PLATELET COUNT (AUTO) 324 K/uL (130-400); RED BLOOD CELL COUNT(AUTO) 4.30 MIL/uL (4.00-5.50); RED CELL DISTRIBUTION WIDTH 13.8 % (11.0-15.5); WHITE BLOOD COUNT (AUTO) 6.0 K/uL (4.8-10.8)
[2025-01-30 20:49] LABS: CREATININE 1.0 mg/dL (0.5-1.0); GLOMERULAR FILTR. RATE CALC 60.0 mL/min (>90); GLUCOSE,RANDOM 105.0 mg/dL (70-105); SODIUM SERUM 134.0 mmol/L (136-145); UREA NITROGEN, BLOOD 9.0 mg/dL (7-18)
--- NOTE | 2025-01-30 21:54 | HMCIMG ---
EXAM: CT Abdomen and Pelvis Without IV contrast. CLINICAL HISTORY: Status post gastric mass resection 01/27. Mild gastric pain. TECHNIQUE: Axial computed tomography images of the abdomen and pelvis without intravenous contrast. CONTRAST: No IV contrast. COMPARISON: CT dated March 16, 2014. FINDINGS: LUNG BASES: Fibroatelectatic changes in both lower lobes. The rest of the lung bases appear clear. No pleural effusions are seen. LIVER: Mild hepatomegaly; the craniocaudal length of the right lobe of the liver measuring up to 16.4 cm. 1.1 cm hypodense lesion in segment VII of the liver. GALLBLADDER AND BILE DUCTS: Questionable gallbladder sludge. No biliary ductal dilatation is evident. PANCREAS: Unremarkable. SPLEEN: Unremarkable. ADRENAL GLANDS: Unremarkable. KIDNEYS, URETERS, AND BLADDER: A 0.6 cm hypodense lesion in the lower polar region of the left kidney may represent an angiomyolipoma; no interval changes. The rest of the kidneys appear within normal limits. There is no hydronephrosis or hydroureter. No urinary calculi are seen. STOMACH AND BOWEL: Small hiatus hernia. Mild fatty stranding around the proximal aspect of the greater curvature of the stomach, likely secondary to immediate postsurgical inflammatory reaction. No bowel obstruction. APPENDIX: No evidence of acute appendicitis on CT examination. PERITONEUM: No free fluid. No free air. There is a small midline supraumbilical anterior abdominal wall hernia, with a defect size measuring up to 1.1 cm, with omentum as content. There is a linear loculated fluid collection with air pockets in the subcutaneous plane of the anterior abdominal wall, measuring 3.9 x 1.8 x 1.5 cm, with mild surrounding fat stranding. There is mild soft tissue emphysema in the left lateral upper abdominal wall. Mild soft tissue emphysema in the left inguinal region. LYMPH NODES: No lymphadenopathy is evident. REPRODUCTIVE: The uterus is surgically absent. No adnexal lesion. VASCULATURE: No evidence of abdominal aortic aneurysm. BONES: Mild multilevel degenerative changes in the spine. The bones are osteopenic. Mild central wedging of the superior endplate of the L2 vertebrae. No aggressive appearing osseous lesion. No acute osseous pathology evident. IMPRESSION: 1.1 cm hypodense lesion in segment VII of the liver, reduced in size since the prior CT. Small midline supraumbilical anterior abdominal wall hernia with a loculated fluid and air collection. Mild left lateral wall soft tissue emphysema, new since the prior CT. Small hiatus hernia. Mild fatty stranding around the proximal aspect of the greater curvature of the stomach, likely secondary to immediate postsurgical inflammatory reaction. The findings are new compared to the previous CT. /[place]
[2025-01-30 22:19] LABS: APPEARANCE,URINE CLEAR (CLEAR); GLUCOSE, URINE (UA) NEGATIVE (NEGATIVE); LEUKOCYTE ESTERASE ,URINE NEGATIVE Leu/uL (NEGATIVE); NITRATE,URINE NEGATIVE (NEGATIVE); OCCULT BLOOD,URINE NEGATIVE (NEGATIVE)
[2025-01-30 22:20] LABS: ADD UA MICROSCOPIC YES
[2025-01-30] MEDS ORDERED: ENAL-89 PO (22:55)
[2025-01-30 23:15] VITALS: BP 161/85; PULSE 64; RESP 17; TEMP 97.8; O2SAT 98
== END 2025-01-30 23:41 | disposition home or self-care (01) ==
LOC: EDH 20:07
DX: L76.82 Other postprocedural complications of skin and subcutaneous tissue (principal); E87.1 Hypo-osmolality and hyponatremia; E86.0 Dehydration; I10 Essential (primary) hypertension; Z88.0 Allergy status to penicillin; Z88.5 Allergy status to narcotic agent; Z91.011 Allergy to milk products; Z91.012 Allergy to eggs; Z91.041 Radiographic dye allergy status
CPT/HCPCS: 99284; 74176; 96374; 96361; 96375; 80048; 83690; 85025; 81001; 36415; J2270; J7030; J2405

== ENCOUNTER 2025-02-01 10:17 | Emergency (ER) | payer OTHER ==
[~2025-02-01] VITALS: Ht 149.9 cm; Wt 63.0 kg
[~2025-02-01 10:17] MED LIST changes: +ENAL-89 PO
[2025-02-01 11:20] LABS: IMMATURE GRANULOCYTE ABSOLUTE 0.03 K/uL (0-1); NUCLEATED RED BLOOD CELLS 0.0 % (0.0-0.19); PLATELET COUNT (AUTO) 350 K/uL (130-400); RED BLOOD CELL COUNT(AUTO) 4.30 MIL/uL (4.00-5.50); RED CELL DISTRIBUTION WIDTH 13.8 % (11.0-15.5); WHITE BLOOD COUNT (AUTO) 6.2 K/uL (4.8-10.8)
[2025-02-01 11:31] LABS: CREATININE 0.9 mg/dL (0.5-1.0); GLOMERULAR FILTR. RATE CALC 68.0 mL/min (>90); GLUCOSE,RANDOM 95.0 mg/dL (70-105); SODIUM SERUM 133.0 mmol/L (136-145); UREA NITROGEN, BLOOD 12.0 mg/dL (7-18)
--- NOTE | 2025-02-01 11:58 | HMCIMG ---
EXAM: CR Chest, 1 View. CLINICAL HISTORY: left sided rib pain COMPARISON: 06/13 12:40 EST CR - CHEST 1VW FINDINGS: LUNGS: There is no mass, infiltrate, or acute pulmonary abnormality. PLEURAL SPACES: No pleural effusion or pneumothorax. MEDIASTINUM: Cardiac size and mediastinal contours within normal limits. BONES: No acute osseous abnormality. IMPRESSION: No acute cardiopulmonary pathology is evident. /[place]
--- NOTE | 2025-02-01 12:17 | ERN ---
General Chief Complaint: Rib Pain Stated Complaint: LEFT RIB PAIN ' Time Seen by MD: 10:21 Time Seen by Midlevel: 10:21 Source: patient History of Present Illness Initial Comments PATIENT IS A 69-YEAR-OLD FEMALE HERE WITH HER DAISamsonJTER WITH COMPLAINTS OF HAVING ABDOMINAL PAIN WITH NAUSEA ONSET 2-3 DAYS PRIOR TO ARRIVAL. SHE STATES SHE WAS HERE ON 01/27 FOR A RESECTION OF A GASTRIC MASS BY DR. LYNN ROLDAN. SHE WAS DISCHARGED THAT SAME DAY. SHE STATES SHE SHE HAS HAD THE SAME PAIN SINCE. SHE HAS LAPAROSCOPIC SITES TO THE ABDOMEN WELL APPROXIMATED NO INFLAMMATION NO TENDERNESS NO DRAINAGE Allergies: Coded Allergies: Iodinated Contrast Media (Unverified Allergy, Unknown, 10/25/24) Penicillins (Unverified Allergy, Unknown, 06/09/24) codeine (Unverified Allergy, Unknown, 01/25/25) milk (Unverified Allergy, Unknown, 01/25/25) Uncoded Allergies: EGGS (Allergy, Mild, 06/10/24) Home Meds Active Scripts Enalapril Maleate (Enalapril Maleate) 10 Mg Tablet, 1 TAB PO DAILY for 30 Days, #30 TAB 0 Refills Prov:BALJIT SAAB WEBLOGIC DEVELOPER 01/30/25 Reported Medications Omeprazole (Omeprazole) 40 Mg Capsule.dr, 40 MG PO HS, CAP 01/25/25 Ergocalciferol (Vitamin D2) (Vitamin D2) 1,250 Mcg (67894 Unit) Capsule, 1 CAP PO QWEEK 06/10/24 Elviteg/Seda/Emtric/Tenofo Ala (Genvoya Tablet) 150 Mg-150 Mg-200 Mg-10 Mg Tablet, 1 TAB PO DAILY 06/10/24 Discontinued Reported Medications Folic Acid (Folvite) 1 Mg Tab, 1 TAB PO BID 06/10/24 Discontinued Scripts Calcium Carbonate (Calcium) 600 Mg Calcium (1500 Mg) Tablet, 1 TAB PO BID for 30 Days, #60 TAB 0 Refills Prov:BALJIT SAAB WEBLOGIC DEVELOPER 10/25/24 Lidocaine (Lidocaine Pain Relief) 4 % Adh..patch, 1 EACH TP DAILY, #30 ADH.PATCH Prov:ANNALISA LEAL WEBLOGIC DEVELOPER 06/15/24 Benzonatate (Tessalon Perles) 100 Mg Cap, 1 CAP PO TID PRN for q6h for 10 Days, #30 CAP 0 Refills Prov:ANNALISA LEAL WEBLOGIC DEVELOPER 06/15/24 Past Medical History Past Medical History: Hypertension Past Surgical History: Other Surgical History Other: abdominal tumor removal Female( History) History: Not Applicable ROS Dictation CONSTITUTIONAL: Negative except for HPI HEAD/FACE: Negative except for HPI EENT: Negative except for HPI RESPIRATORY: Negative except for HPI GASTROINTESTINAL/ABDOMINAL: Negative except for HPI GENITOURINARY: Negative except for HPI MUSCULOSKELETAL: Negative except for HPI INTEGUMENTARY: Negative except for HPI NEUROLOGICAL/PSYCH: Negative except for HPI HEMATOLOGIC/LYMPHATIC: Negative except for HPI All Systems Negative, Except as noted above. 13 point review of systems assessed and all negative except for above. Physical Exam Physical Exam Dictation Vital Signs reviewed General Appearance: Alert, oriented x 3, no acute distress, well developed, nourished. Head and Face: non-traumatic. Eyes: PERRL, pink conjunctivas, eyelid no trauma, anterior chamber with arcus senilis. Ears: Pinnas intact and no signs of trauma or erythema ear canals clear and no discharge TM no erythema Nose: No discharge, no bleeding. Oropharynx: Mouth normal, tongue pink, pharynx clear,no erythema, tonsils no exudates, no abscesses noted, mucous membrane moist Neck: Supple, non-tender, no thyromegaly, no masses, no JVD, no bruits Breast:Deferred Chest:No tenderness, no crepitus, no paradoxical movement, no retractions Lungs:Clear, well-ventilated, symmetric, no rales, no wheezing, no rhonchi, no stridor, good breath sounds bilaterally Heart: Regular rate, regular rhythm, no murmur, no gallops Vascular: no peripheral edema, Abdomen: Soft, positive bowel sounds, nondistended, no guarding, nontender, no rebound, no masses no hepatomegaly, no splenomegaly, no Encarnacion's sign, no hernias. Rectal: Deferred Genital: Deferred Neurological: Normal speech, motor function intact, sensory function intact Musculoskeletal: Neck nontender, full range of motion, back nontender, full range of motion, Extremities: nontender, full range of motion Skin: Color pink, dry, no turgor, no rash, no lacerations, no abrasions, no contusions. Lymphatic: Deferred Results Laboratory and Microbiology Lab and Micro Result Laboratory Tests Test 02/01/25 11:08 White Blood Count 6.2 K/uL (4.8-10.8) Red Blood Count 4.30 MIL/uL (4.00-5.50) Hemoglobin 11.7 g/dL (12.0-16.0) L Hematocrit 36.8 % (36-48) Mean Corpuscular Volume 85.6 fL (79-99) Mean Corpuscular Hemoglobin 27.2 pg (27.0-33.0) Mean Corpuscular Hemoglobin Concent 31.8 g/dL (32.0-36.0) L Red Cell Distribution Width 13.8 % (11.0-15.5) Platelet Count 350 K/uL (130-400) Mean Platelet Volume 8.8 fL (7.5-10.5) Immature Granulocyte % (Auto) 0.5 % (0-1) Neutrophils (%) (Auto) 65.1 % (40.0-77.0) Lymphocytes (%) (Auto) 25.9 % (21.0-51.0) Monocytes (%) (Auto) 7.1 % (3.0-13.0) Eosinophils (%) (Auto) 1.1 % (0.0-8.0) Basophils (%) (Auto) 0.3 % (0.0-5.0) Neutrophils # (Auto) 4.0 K/uL (1.8-7.7) Lymphocytes # (Auto) 1.6 K/uL (1.0-4.8) Monocytes # (Auto) 0.4 K/uL (0.1-1.0) Eosinophils # (Auto) 0.07 K/uL (0.00-0.70) Basophils # (Auto) 0.02 K/uL (0.00-0.20) Absolute Immature Granulocyte (auto 0.03 K/uL (0-1) Nucleated Red Blood Cells 0.0 % (0.0-0.19) Sodium Level 133 mmol/L (136-145) L Potassium Level 3.8 mmol/L (3.5-5.1) Chloride Level 97 mmol/L (101-111) L Carbon Dioxide Level 28 mmol/L (21-32) Blood Urea Nitrogen 12 mg/dL (7-18) Creatinine 0.9 mg/dL (0.5-1.0) Glomerular Filtration Rate Calc 68 mL/min (>90) Random Glucose 95 mg/dL (70-105) Total Calcium 9.0 mg/dL (8.5-10.1) Labs Reviewed?: Yes MDM MDM: Seven 1-year-old female presenting with left upper quadrant abdominal pain. Patient was seen in our emergency department several days ago for the same complaint she had a CT scan of the abdomen which showed postinflammatory changes. This was discussed with surgeon Dr. Jerson costa and states this is normal both operative findings she was discharged home however he returns with the same pain. I obtain basic blood work which is unremarkable. I also obtained a chest x-ray to rule out a left pleural effusion or left pneumothorax however chest x-ray is unremarkable. I did offer a repeat CT scan but the patient was refusing secondary to radiation exposure. She has an appointment with her surgeon in two days and is willing to wait until she is evaluated by him. He was advised to return to the ER if she develops any new or worsening symptoms she is agreeable with this plan and all questions been answered. Differential diagnosis: Postsurgical pain, pleural effusion, rib fracture There are no social concerns with this patient. Prescription drug management Prescriptions will include: Toradol Medical management and examination interpretation discussions were had by me with other qualified healthcare professionals as indicated for the patient's care. ED Course Orders Procedure Category Date Status Time Cbc With Differential LAB 02/01/25 Complete 10:33 Basic Metabolic Panel LAB 02/01/25 Complete 10:33 Chest 1vw RAD 02/01/25 Resulted 10:33 Ketorolac PHA 02/01/25 Complete Tromethamine 15mg/Ml 11:00 Morphine 2mg Syg PHA 02/01/25 In Process (Morphine 2mg Syg) 12:30 Ondansetron 4mg Inj PHA 02/01/25 In Process (Zofran 4mg Inj) 12:30 Current Medications Medications (Trade) Dose Ordered Sig/Felix Route PRN Reason Start Time Stop Time Status Last Admin Dose Admin Ketorolac Tromethamine (toRADol) 15 mg ONCE ONCE IM 02/01/25 11:00 02/01/25 11:01 DC 02/01/25 11:24 Morphine Sulfate (morPHINE 2MG SYG) 2 mg ONCE ONCE IVP 02/01/25 12:30 02/01/25 12:31 Ondansetron HCl (zoFRAN 4MG INJ) 4 mg ONCE ONCE IVP 02/01/25 12:30 02/01/25 12:31 Vital Signs Date Time Temp Pulse Resp B/P (MAP) Pulse Ox O2 Delivery O2 Flow Rate FiO2 02/01/25 10:25 97.3 65 16 136/48 100 Room Air* 0 21 02/01/25 10:22 97.3 65 16 136/48 100 Room Air 0 DX & DISP Disposition: Discharge Departure Impression: Primary Impression: Postoperative pain Condition: Stable Scripts Ketorolac Tromethamine (Ketorolac Tromethamine) 10 Mg Tablet 1 TAB PO BID for pain for 5 Days, #10 TAB 0 Refills Prov: ANDI MIGUEL 02/01/25 Additional Instructions: Your blood work today is unremarkable. Your chest x-ray is normal. You will need to follow up with surgeon on as discussed. If develop any new or worsening symptoms please report to the ER for further evaluation. Referrals: ANNE MCQUEEN MD (PCP) Time of Disposition: 12:20 I have reviewed the case, and I agree with, Diagnosis and Plan I performed the substantive portion of the visit. I have reviewed and personally made and approve the management plan that is documented in the note by myself or the IMTIAZ. I acknowledge for responsibility for the patient's management plan. ANDI MIGUEL Feb 01, 2025 12:17
[2025-02-01] MEDS ORDERED: KETO10TA2 PO (12:23)
[2025-02-01 13:02] VITALS: BP 129/51; PULSE 69; RESP 18; TEMP 97.9; O2SAT 99
== END 2025-02-01 13:03 | disposition home or self-care (01) ==
LOC: EDH 10:17
DX: G89.18 Other acute postprocedural pain (principal); I10 Essential (primary) hypertension; Z88.0 Allergy status to penicillin; Z79.899 Other long term (current) drug therapy; Z88.5 Allergy status to narcotic agent; Z91.011 Allergy to milk products; Z91.012 Allergy to eggs; Z91.041 Radiographic dye allergy status
CPT/HCPCS: 99283; 96374; 71045; 96375; 80048; 85025; 36415; 96372; J1885; J2270; J2405